=== PATIENT | female | born 1975 | race African-American/Black ===

== ENCOUNTER 2019-10-27 23:38 | Inpatient (IN) ==
[2019-10-28 00:52] LABS: Basophils % 0.3 % (0.0-0.8); Eosinophils # 0.1 10*3/uL (0.0-0.87); Eosinophils % 0.9 % (0.00-10.9); Hematocrit 38.9 VOL% (35.7-47.0); Hemoglobin 11.7 GM/DL (12.0-16.0); Immature Granulocytes % 0.9 %; Lymphocytes # 1.7 10*3/uL (1.4-4.0); Lymphocytes % 14.5 % (21.3-54.2); Mean Corpuscular HGB Conc 30.1 GM/DL (32-36); Mean Corpuscular Volume 85.7 FL (87-102); Mean Platelet Volume 10.7 FL (9.6-12.0); Monocytes % 6.8 % (1.7-12.7); NRBC # 0.03 10*3/uL; Neutrophils % 76.6 % (38.7-73.9); Platelet Count 482 T/CUMM (130-400); Red Blood Count 4.54 MC/CUMM (3.8-5.5); Red Cell Distribution Width 18.9 % (9.3-17.3); White Blood Count 11.7 T/CUMM (4-12)
[2019-10-28 01:03] LABS: PT Patient Result 10.5 SECS (9.8-11.9); Partial Thromboplastin Time 25.1 SECS (23.9-33.8)
[2019-10-28 01:08] LABS: Albumin 2.8 G/DL (3.4-5.0); Bilirubin,Total 0.4 MG/DL (0.2-1.0); Calcium 8.7 MG/DL (8.5-10.1); Ferritin 20.3 ng/ml (8-252); Osmolality,Calculated 269.7 MOS/KG (273-304); Total Protein 8.3 G/DL (6.4-8.3)
[2019-10-28] MEDS ORDERED: GLUCAGON 1 MG VIAL IM PRN (02:05)
[2019-10-28] MEDS ORDERED: DEXTROSE 50% 25 GM/50 ML VIAL IV PRN (02:05)
[2019-10-28] MEDS ORDERED: methylPREDNISolone SOD SUC 125 MG/2 ML VIAL IV ONE (02:07)
[2019-10-28] MEDS ORDERED: AZITHROMYCIN INJ 500 MG in SODIUM CHLORIDE 0.9% 250 ML IV ONE (02:08)
[2019-10-28] MEDS ORDERED: ONDANSETRON 4 MG/2 ML VIAL IV PRN (02:09)
[2019-10-28] MEDS ORDERED: DOCUSATE SODIUM 100 MG CAPSULE PO PRN (02:09)
[2019-10-28 02:12] LABS: Apearance,Urine CLEAR (Clear); Bilirubin,Urine Negative (Negative); Blood, Urine Small mg/dL (Negative); Glucose,Urine (UA) Negative (Negative); Ketones,Urine Negative (Negative); Mucus,Urine Occasional /LPF (Occasional); Nitrite,Urine Negative (Negative); Protein,Urine 100 MG/DL; RBC,Urine 6 /HPF (0-4); Squamous Epithelial Cell,Urine Occasional /HPF (0-10); Urine Color Yellow (Yellow); Urine Specific Gravity 1.019 (1.001-1.035); Urine Urobilinogen < 2.0 EU/DL (0.2-1.0); WBC,Urine 10 /HPF (0-6)
[2019-10-28] MEDS ORDERED: cefTRIAXone 1,000 MG in SODIUM CHLORIDE 0.9% 100 ML IV SCH (02:30)
[2019-10-28 02:42] LABS: Risk Ratio 5.6; Thyroid Stimulating Hormone 3.7 uIU/ml (0.358-3.74); VLDL CHOLESTEROL 29.4 MG/DL
[2019-10-28 04:01] LABS: ABG Base Excess -0.9 MMOL/L (-2.5-2.5); ABG HCO3 23.7 MMOL/L (20-26); ABG Oxygen Saturation 97.6 % (95-100); ABG PCO2 37.7 MM HG (35-48); ABG PH 7.403 (7.35-7.45); Allen Test Positive
[2019-10-28] MEDS ORDERED: ENOXAPARIN 40 MG/0.4 ML SYRINGE SUBCUT SCH (08:00)
[2019-10-28] MEDS: INSULIN LISPRO 100 UNIT/ML SUBCUT SCH ×4 (09:13→20:22)
[2019-10-28] MEDS: ENOXAPARIN 40 MG/0.4 ML SYRINGE SUBCUT SCH ×2 (09:13→20:22)
[2019-10-28] MEDS: PANTOPRAZOLE 40 MG TABLET PO SCH (09:14)
[2019-10-28] MEDS: ASPIRIN CHEW 81 MG TABLET PO SCH (09:14)
[2019-10-28] MEDS: ZINC GLUCONATE 50 MG TABLET PO SCH (09:14)
[2019-10-28] MEDS: ACETAMINOPHEN 325 MG TABLET PO PRN ×2 (09:14→20:23)
[2019-10-28] MEDS: LISINOPRIL/HCTZ 10-12.5 MG TABLET PO SCH (09:15)
[2019-10-28 10:48] LABS: Calcium 8.8 MG/DL (8.5-10.1); Osmolality,Calculated 274.7 MOS/KG (273-304)
[2019-10-28] MEDS: amLODIPine 5 MG TABLET PO SCH (20:22)
[2019-10-28] MEDS: glipiZIDE 5 MG TABLET PO SCH (20:22)
[2019-10-28] MEDS: ASCORBIC ACID 500 MG TABLET PO SCH (20:23)
[2019-10-29 04:33] LABS: Calcium 8.6 MG/DL (8.5-10.1); Osmolality,Calculated 268.7 MOS/KG (273-304)
[2019-10-29] MEDS: INSULIN LISPRO 100 UNIT/ML SUBCUT SCH ×4 (09:32→22:11)
[2019-10-29] MEDS: ENOXAPARIN 40 MG/0.4 ML SYRINGE SUBCUT SCH ×2 (09:32→22:11)
[2019-10-29] MEDS: ASPIRIN CHEW 81 MG TABLET PO SCH (09:32)
[2019-10-29] MEDS: DEXAMETHASONE 10 MG/1 ML VIAL IV SCH (09:33)
[2019-10-29] MEDS: LISINOPRIL/HCTZ 10-12.5 MG TABLET PO SCH (09:33)
[2019-10-29] MEDS: glipiZIDE 5 MG TABLET PO SCH ×2 (09:33→22:11)
[2019-10-29] MEDS: ZINC GLUCONATE 50 MG TABLET PO SCH (09:33)
[2019-10-29] MEDS: PANTOPRAZOLE 40 MG TABLET PO SCH (09:33)
[2019-10-29] MEDS: cefTRIAXone 1,000 MG in SYRINGE 1 EACH IV SCH (09:33)
[2019-10-29] MEDS: ASCORBIC ACID 500 MG TABLET PO SCH ×2 (09:33→22:12)
[2019-10-29] MEDS: AZITHROMYCIN 250 MG TABLET PO SCH (09:33)
[2019-10-29] MEDS ORDERED: VANCOMYCIN INJ 1,000 MG in SODIUM CHLORIDE 0.9% 250 ML IV ONE (12:56)
[2019-10-29] MEDS ORDERED: SODIUM CHLORIDE 0.9% 500 ML IV ONE (13:05)
[2019-10-29] MEDS: ACETAMINOPHEN 325 MG TABLET PO PRN (22:12)
[2019-10-29] MEDS: amLODIPine 5 MG TABLET PO SCH (22:12)
[2019-10-30 05:34] LABS: Basophils % 0.1 % (0.0-0.8); Hematocrit 36.7 VOL% (35.7-47.0); Immature Granulocytes % 0.5 %; Immature Granulocytes Absolute 0.07 #; Lymphocytes # 1.4 10*3/uL (1.4-4.0); Lymphocytes % 10.7 % (21.3-54.2); Mean Corpuscular HGB Conc 29.4 GM/DL (32-36); Mean Corpuscular Volume 85.9 FL (87-102); Mean Platelet Volume 10.6 FL (9.6-12.0); NRBC # 0.02 10*3/uL; Neutrophils % 81.7 % (38.7-73.9); Platelet Count 511 T/CUMM (130-400); Red Blood Count 4.27 MC/CUMM (3.8-5.5); Red Cell Distribution Width 18.2 % (9.3-17.3); White Blood Count 13.2 T/CUMM (4-12)
[2019-10-30 06:01] LABS: Calcium 8.3 MG/DL (8.5-10.1); Osmolality,Calculated 275.2 MOS/KG (273-304)
[2019-10-30 06:36] LABS: Hemoglobin 11.1 GM/DL (12.0-16.0)
[2019-10-30] MEDS: INSULIN LISPRO 100 UNIT/ML SUBCUT SCH ×4 (08:03→20:56)
[2019-10-30] MEDS: ENOXAPARIN 40 MG/0.4 ML SYRINGE SUBCUT SCH ×2 (08:58→20:03)
[2019-10-30] MEDS: ZINC GLUCONATE 50 MG TABLET PO SCH (08:59)
[2019-10-30] MEDS: PANTOPRAZOLE 40 MG TABLET PO SCH (08:59)
[2019-10-30] MEDS: LISINOPRIL/HCTZ 10-12.5 MG TABLET PO SCH (08:59)
[2019-10-30] MEDS: glipiZIDE 5 MG TABLET PO SCH ×2 (08:59→20:36)
[2019-10-30] MEDS: ASPIRIN CHEW 81 MG TABLET PO SCH (08:59)
[2019-10-30] MEDS: DEXAMETHASONE 10 MG/1 ML VIAL IV SCH (08:59)
[2019-10-30] MEDS: cefTRIAXone 1,000 MG in SYRINGE 1 EACH IV SCH (08:59)
[2019-10-30] MEDS: ASCORBIC ACID 500 MG TABLET PO SCH ×2 (08:59→20:36)
[2019-10-30] MEDS: AZITHROMYCIN 250 MG TABLET PO SCH (09:00)
[2019-10-30] MEDS: amLODIPine 5 MG TABLET PO SCH (20:36)
[2019-10-31] MEDS: INSULIN LISPRO 100 UNIT/ML SUBCUT SCH ×4 (08:15→20:51)
[2019-10-31] MEDS: ENOXAPARIN 40 MG/0.4 ML SYRINGE SUBCUT SCH ×2 (08:18→20:53)
[2019-10-31] MEDS: cefTRIAXone 1,000 MG in SYRINGE 1 EACH IV SCH (08:18)
[2019-10-31] MEDS: glipiZIDE 5 MG TABLET PO SCH ×2 (08:18→20:48)
[2019-10-31] MEDS: LISINOPRIL/HCTZ 10-12.5 MG TABLET PO SCH (08:18)
[2019-10-31] MEDS: ASPIRIN CHEW 81 MG TABLET PO SCH (08:18)
[2019-10-31] MEDS: PANTOPRAZOLE 40 MG TABLET PO SCH (08:18)
[2019-10-31] MEDS: DEXAMETHASONE 10 MG/1 ML VIAL IV SCH (08:18)
[2019-10-31] MEDS: ZINC GLUCONATE 50 MG TABLET PO SCH (08:19)
[2019-10-31] MEDS: ASCORBIC ACID 500 MG TABLET PO SCH ×2 (08:19→20:48)
[2019-10-31] MEDS: AZITHROMYCIN 250 MG TABLET PO SCH (08:19)
[2019-10-31] MEDS: amLODIPine 5 MG TABLET PO SCH (20:48)
[2019-11-01] MEDS: INSULIN LISPRO 100 UNIT/ML SUBCUT SCH (07:39)
[2019-11-01 07:43] VITALS: BP 149/86
[2019-11-01] MEDS: glipiZIDE 5 MG TABLET PO SCH (08:24)
[2019-11-01] MEDS: ASCORBIC ACID 500 MG TABLET PO SCH (08:24)
[2019-11-01] MEDS: LISINOPRIL/HCTZ 10-12.5 MG TABLET PO SCH (08:24)
[2019-11-01] MEDS: PANTOPRAZOLE 40 MG TABLET PO SCH (08:24)
[2019-11-01] MEDS: DEXAMETHASONE 10 MG/1 ML VIAL IV SCH (08:25)
[2019-11-01] MEDS: ZINC GLUCONATE 50 MG TABLET PO SCH (08:25)
[2019-11-01] MEDS: ENOXAPARIN 40 MG/0.4 ML SYRINGE SUBCUT SCH (08:25)
[2019-11-01] MEDS: AZITHROMYCIN 250 MG TABLET PO SCH (08:25)
[2019-11-01] MEDS: cefTRIAXone 1,000 MG in SYRINGE 1 EACH IV SCH (08:25)
[2019-11-01] MEDS: ASPIRIN CHEW 81 MG TABLET PO SCH (08:25)
[2019-11-01] MEDS ORDERED: predniSONE 20 MG TABLET PO SCH (09:00)
== END 2019-11-01 13:30 | disposition home or self-care (01) | DRG 189 ==
LOC: N.ED 23:38 → N.EDINP 10-28 02:04 → SUATTDRO 10-28 02:04 → N.ICU 10-28 03:04 → N.CC 10-28 03:10 → N.2E 10-28 14:13 → N.4E 10-30 13:04
PROVIDERS: ADMIT Internal Medicine; ATTEND Internal Medicine

== ENCOUNTER 2020-01-27 17:58 | Observation (INO) ==
[2020-01-27 18:46] LABS: Basophils % 0.3 % (0.0-0.8); Eosinophils # 0.1 10*3/uL (0.0-0.87); Eosinophils % 0.5 % (0.00-10.9); Immature Granulocytes % 0.4 %; Immature Granulocytes Absolute 0.05 #; Lymphocytes % 8.8 % (21.3-54.2); Mean Corpuscular HGB Conc 29.8 GM/DL (32-36); Mean Corpuscular Volume 88.2 FL (87-102); Mean Platelet Volume 10.9 FL (9.6-12.0); Monocytes % 2.1 % (1.7-12.7); Neutrophils % 87.9 % (38.7-73.9); Platelet Count 360 T/CUMM (130-400); Red Blood Count 5.33 MC/CUMM (3.8-5.5); Red Cell Distribution Width 18.7 % (9.3-17.3); White Blood Count 11.6 T/CUMM (4-12)
[2020-01-27 19:08] LABS: INR 0.9; PT Patient Result 10.1 SECS (9.8-11.9)
[2020-01-27 19:12] LABS: Alanine Aminotransferase 23 U/L (13-56); Albumin 3.2 G/DL (3.4-5.0); Alkaline Phosphatase 53 U/L (45-117); Aspartate Amino Transferase 25 U/L (0-37); Bilirubin,Total < 0.39 MG/DL (0.2-1.0); Blood Urea Nitrogen 24 MG/DL (7-18); Calcium 8.7 MG/DL (8.5-10.1); Estimated Glom Filtration Rate 58 ML/MIN; Glucose 269 MG/DL (74-106); Osmolality,Calculated 287.7 MOS/KG (273-304); Total Protein 7.5 G/DL (6.4-8.3)
[2020-01-27 19:51] LABS: ABG Base Excess -0.6 MMOL/L (-2.5-2.5); ABG HCO3 23.8 MMOL/L (20-26); ABG Oxygen Saturation 95.3 % (95-100); ABG PCO2 38.1 MM HG (35-48); ABG PH 7.403 (7.35-7.45); ABG PO2 80.8 MM HG (80-95); ABG TCO2 20.7 MMOL/L (23-27); Allen Test Positive
[2020-01-27] MEDS ORDERED: DEXTROSE 50% 25 GM/50 ML VIAL IV PRN ×2 (21:38)
[2020-01-27] MEDS ORDERED: GLUCAGON 1 MG VIAL IM PRN ×2 (21:38)
[2020-01-27] MEDS ORDERED: ONDANSETRON 4 MG/2 ML VIAL IV PRN (21:38)
[2020-01-27] MEDS ORDERED: DOCUSATE SODIUM 100 MG CAPSULE PO PRN (21:38)
[2020-01-27] MEDS ORDERED: BISACODYL 5 MG TABLET PO PRN (21:38)
[2020-01-27] MEDS ORDERED: AZITHROMYCIN INJ 500 MG in SODIUM CHLORIDE 0.9% 250 ML IV SCH (23:45)
[2020-01-27] MEDS ORDERED: ALBUTEROL 0.63 MG/3 ML NEB RESP TX PRN (23:52)
[2020-01-28] MEDS: INSULIN LISPRO 100 UNIT/ML SUBCUT SCH ×3 (09:47→21:57)
[2020-01-28] MEDS: ASPIRIN CHEW 81 MG TABLET PO SCH (09:59)
[2020-01-28] MEDS: glipiZIDE 5 MG TABLET PO SCH ×2 (09:59→21:52)
[2020-01-28] MEDS: carvediloL 25 MG TABLET PO SCH ×2 (09:59→17:50)
[2020-01-28] MEDS: MULTIVITAMIN (CENTRUM) TABLET PO SCH (09:59)
[2020-01-28] MEDS: ENOXAPARIN 40 MG/0.4 ML SYRINGE SUBCUT SCH (10:00)
[2020-01-28] MEDS: AZITHROMYCIN 250 MG TABLET PO SCH (10:00)
[2020-01-28] MEDS: SODIUM CHLORIDE 0.9% 1,000 ML IV SCH (11:58)
[2020-01-28] MEDS: methylPREDNISolone SOD SUC 40 MG/1 ML VIAL IV SCH ×2 (12:16→19:32)
[2020-01-28] MEDS ORDERED: ATORVASTATIN 10 MG TABLET PO SCH (21:00)
[2020-01-29] MEDS: SODIUM CHLORIDE 0.9% 1,000 ML IV SCH (01:18)
[2020-01-29] MEDS: methylPREDNISolone SOD SUC 40 MG/1 ML VIAL IV SCH ×2 (03:43→11:35)
[2020-01-29 06:17] LABS: Basophils % 0.1 % (0.0-0.8); Hematocrit 40.3 VOL% (35.7-47.0); Hemoglobin 12.2 GM/DL (12.0-16.0); Immature Granulocytes % 0.5 %; Immature Granulocytes Absolute 0.05 #; Mean Corpuscular HGB Conc 30.3 GM/DL (32-36); Mean Corpuscular Volume 89.4 FL (87-102); Mean Platelet Volume 12.1 FL (9.6-12.0); Monocytes % 1.8 % (1.7-12.7); Neutrophils % 86.6 % (38.7-73.9); Platelet Count 274 T/CUMM (130-400); Red Blood Count 4.51 MC/CUMM (3.8-5.5); Red Cell Distribution Width 17.9 % (9.3-17.3); White Blood Count 9.5 T/CUMM (4-12)
[2020-01-29 06:35] LABS: Calcium 8.7 MG/DL (8.5-10.1); Osmolality,Calculated 279.2 MOS/KG (273-304)
[2020-01-29 06:40] LABS: Hypochromasia Slight; Ovalocytes Slight; Platelet Estimate Adequate
[2020-01-29] MEDS: glipiZIDE 5 MG TABLET PO SCH (09:27)
[2020-01-29] MEDS: ASPIRIN CHEW 81 MG TABLET PO SCH (09:27)
[2020-01-29] MEDS: MULTIVITAMIN (CENTRUM) TABLET PO SCH (09:27)
[2020-01-29] MEDS: carvediloL 25 MG TABLET PO SCH (09:27)
[2020-01-29] MEDS: AZITHROMYCIN 250 MG TABLET PO SCH (09:28)
[2020-01-29] MEDS: ENOXAPARIN 40 MG/0.4 ML SYRINGE SUBCUT SCH (09:28)
[2020-01-29] MEDS: INSULIN LISPRO 100 UNIT/ML SUBCUT SCH (11:36)
[2020-01-29 12:37] VITALS: BP 171/95
== END 2020-01-29 14:00 | disposition home or self-care (01) ==
LOC: N.ED 17:58 → N.EDINP 17:58 → N.3E 22:29
PROVIDERS: ADMIT Emergency Medicine; ATTEND Emergency Medicine

== ENCOUNTER 2020-04-11 07:18 | Inpatient (IN) ==
[2020-03-29 16:05] LABS: Calcium 9.4 MG/DL (8.5-10.1); Osmolality,Calculated 277.2 MOS/KG (273-304); Potassium 5.5 MMOL/L (3.5-5.1)
[2020-03-29 16:11] LABS: Basophils % 0.3 % (0.0-0.8); Hematocrit 45.7 VOL% (35.7-47.0); INR 0.9; Immature Granulocytes % 2.6 %; Immature Granulocytes Absolute 0.34 #; Lymphocytes # 1.8 10*3/uL (1.4-4.0); Lymphocytes % 13.5 % (21.3-54.2); Mean Corpuscular Volume 93.3 FL (87-102); Mean Platelet Volume 12.6 FL (9.6-12.0); Monocytes % 2.4 % (1.7-12.7); Neutrophils % 81.2 % (38.7-73.9); PT Patient Result 9.9 SECS (9.8-11.9); Platelet Count 395 T/CUMM (130-400); Red Cell Distribution Width 18.6 % (9.3-17.3); White Blood Count 13.1 T/CUMM (4-12)
[2020-03-29 16:17] LABS: Hemoglobin 13.7 GM/DL (12.0-16.0)
[~2020-04-11 07:18] MED LIST: ceFAZolin 2,000 MG in PREMIX 1 EACH IV ONE
[2020-04-11 08:12] LABS: Calcium 9.5 MG/DL (8.5-10.1); Osmolality,Calculated 274.8 MOS/KG (273-304); Potassium 3.7 MMOL/L (3.5-5.1)
[2020-04-11] MEDS ORDERED: LACTATED RINGERS 1,000 ML IV SCH (08:30)
[2020-04-11] MEDS ORDERED: DEXTROSE 50% 25 GM/50 ML VIAL IV STA (08:45)
[2020-04-11] MEDS ORDERED: MIDAZOLAM 2 MG/2 ML VIAL ONE (09:50)
[2020-04-11] MEDS ORDERED: ROCURONIUM 50 MG/5 ML VIAL IV ONE ×2 (09:50→11:29)
[2020-04-11] MEDS ORDERED: LIDOCAINE 2% 5 ML VIAL ONE (09:50)
[2020-04-11] MEDS ORDERED: propofoL 200 MG/20 ML VIAL IV ONE ×2 (09:50→11:29)
[2020-04-11] MEDS ORDERED: fentaNYL 100 MCG/2 ML VIAL ONE ×2 (09:51→11:24)
[2020-04-11] MEDS ORDERED: ROPIVACAINE 0.5% 30 ML VIAL ONE (09:54)
[2020-04-11] MEDS ORDERED: DEXAMETHASONE 4 MG/1 ML VIAL ONE (09:54)
[2020-04-11] MEDS ORDERED: DEXTROSE 5% LACTATED RINGERS 1,000 ML IV SCH (10:30)
[2020-04-11] MEDS ORDERED: HEPARIN/NACL 0.9% 2 UNITS/ML 500 ML IV ONE (10:44)
[2020-04-11] MEDS ORDERED: ALBUTEROL INHALER 18 GM INH ONE (11:16)
[2020-04-11] MEDS ORDERED: methylPREDNISolone SOD SUC 125 MG/2 ML VIAL ONE (11:17)
[2020-04-11] MEDS ORDERED: SEVOFLURANE 1 UNIT/15 MINUTE INH ONE ×2 (11:32→12:28)
[2020-04-11] MEDS ORDERED: PHENYLEPHRINE 1 MG/10 ML SYRINGE IV ONE (11:37)
[2020-04-11] MEDS ORDERED: ACETAMINOPHEN 1,000 MG/100 ML VIAL IV ONE (11:57)
[2020-04-11] MEDS ORDERED: ONDANSETRON 4 MG/2 ML VIAL ONE (11:58)
[2020-04-11] MEDS ORDERED: HYDROmorphone 2 MG/1 ML VIAL ONE (11:58)
[2020-04-11] MEDS ORDERED: LACTATED RINGERS 1,000 ML IV ONE (11:58)
[2020-04-11] MEDS ORDERED: SUGAMMADEX 200 MG/2 ML VIAL IV ONE ×2 (12:00→12:04)
[2020-04-11] MEDS ORDERED: TISSUE ADHESIVE 1 EACH APPLICATOR TOP ONE (12:09)
[2020-04-11] MEDS ORDERED: GLUCAGON 1 MG VIAL IM PRN (12:12)
[2020-04-11] MEDS ORDERED: ONDANSETRON 4 MG/2 ML VIAL IV PRN ×2 (12:12→12:49)
[2020-04-11] MEDS ORDERED: KETOROLAC 15 MG/1 ML VIAL IV PRN (12:12)
[2020-04-11] MEDS ORDERED: HYDROmorphone 2 MG/1 ML VIAL IV PRN ×2 (12:12→12:49)
[2020-04-11] MEDS ORDERED: DEXTROSE 50% 25 GM/50 ML VIAL IV PRN (12:12)
[2020-04-11] MEDS: LACTATED RINGERS 1,000 ML IV SCH (12:30)
[2020-04-11] MEDS ORDERED: diphenhydrAMINE 50 MG/1 ML VIAL IV PRN (12:49)
[2020-04-11] MEDS ORDERED: PROMETHAZINE INJ 25 MG in SODIUM CHLORIDE 0.9% 50 ML IV PRN (12:49)
[2020-04-11] MEDS ORDERED: MEPERIDINE 25 MG/1 ML VIAL IV PRN (12:49)
[2020-04-11 13:38] VITALS: BP 158/90
[2020-04-11] MEDS: hydrALAZINE 25 MG TABLET PO PRN (17:30)
[2020-04-11] MEDS: INSULIN REGULAR 100 UNIT/ML SUBCUT SCH ×2 (17:30→21:20)
[2020-04-11] MEDS ORDERED: MYCOPHENOLATE MOFETIL 500 MG PO SCH (21:00)
[2020-04-11] MEDS: glipiZIDE 5 MG TABLET PO SCH (21:19)
[2020-04-12 04:20] LABS: Basophils % 0.1 % (0.0-0.8); Hematocrit 41.4 VOL% (35.7-47.0); Hemoglobin 12.6 GM/DL (12.0-16.0); Immature Granulocytes % 0.9 %; Immature Granulocytes Absolute 0.13 #; Lymphocytes # 1.2 10*3/uL (1.4-4.0); Lymphocytes % 8.4 % (21.3-54.2); Mean Corpuscular HGB Conc 30.4 GM/DL (32-36); Mean Corpuscular Volume 93.9 FL (87-102); Mean Platelet Volume 11.8 FL (9.6-12.0); Monocytes % 3.7 % (1.7-12.7); Neutrophils % 86.9 % (38.7-73.9); Platelet Count 223 T/CUMM (130-400); Red Blood Count 4.41 MC/CUMM (3.8-5.5); Red Cell Distribution Width 18.8 % (9.3-17.3); White Blood Count 14.4 T/CUMM (4-12)
[2020-04-12 04:39] LABS: Calcium 8.9 MG/DL (8.5-10.1); Osmolality,Calculated 278.2 MOS/KG (273-304); Potassium 5.5 MMOL/L (3.5-5.1)
[2020-04-12] MEDS: LACTATED RINGERS 1,000 ML IV SCH (05:15)
[2020-04-12] MEDS: ENOXAPARIN 40 MG/0.4 ML SYRINGE SUBCUT SCH (06:08)
[2020-04-12] MEDS: ASPIRIN CHEW 81 MG TABLET PO SCH (08:27)
[2020-04-12] MEDS: LISINOPRIL/HCTZ 10-12.5 MG TABLET PO SCH (08:27)
[2020-04-12] MEDS: ATORVASTATIN 10 MG TABLET PO SCH (08:27)
[2020-04-12] MEDS: atenoloL 50 MG TABLET PO SCH (08:28)
[2020-04-12] MEDS: glipiZIDE 5 MG TABLET PO SCH ×2 (08:28→21:09)
[2020-04-12] MEDS: MULTIVITAMIN (CENTRUM) TABLET PO SCH (08:28)
[2020-04-12] MEDS: predniSONE 20 MG TABLET PO SCH (08:28)
[2020-04-12] MEDS: INSULIN REGULAR 100 UNIT/ML SUBCUT SCH ×4 (08:29→21:09)
[2020-04-12] MEDS ORDERED: NON-FORMULARY MEDICATION (Liraglutide [Victoza 2-Pak] 0.6 mg/0.1 mL (18 mg/3 mL) Pen Injec SUBCUT SCH (09:00)
[2020-04-12] MEDS ORDERED: ETHINYL ESTRADIOL/NORGESTREL 0.03-0.3 MG TABLET PO SCH (09:00)
[2020-04-12] MEDS: hydrALAZINE 25 MG TABLET PO PRN (10:50)
[2020-04-12] MEDS ORDERED: OXYGEN SCH (17:24)
[2020-04-13] MEDS: ENOXAPARIN 40 MG/0.4 ML SYRINGE SUBCUT SCH (06:27)
[2020-04-13] MEDS: INSULIN REGULAR 100 UNIT/ML SUBCUT SCH (08:14)
[2020-04-13] MEDS: ASPIRIN CHEW 81 MG TABLET PO SCH (08:33)
[2020-04-13] MEDS: atenoloL 50 MG TABLET PO SCH (08:33)
[2020-04-13] MEDS: MULTIVITAMIN (CENTRUM) TABLET PO SCH (08:33)
[2020-04-13] MEDS: LISINOPRIL/HCTZ 10-12.5 MG TABLET PO SCH (08:33)
[2020-04-13] MEDS: ATORVASTATIN 10 MG TABLET PO SCH (08:33)
[2020-04-13] MEDS: glipiZIDE 5 MG TABLET PO SCH (08:33)
[2020-04-13] MEDS: predniSONE 20 MG TABLET PO SCH (08:33)
[2020-04-13] MEDS ORDERED: SULFAMETHOX/TRIMETHOPRIM 800-160 MG TABLET PO SCH (09:00)
== END 2020-04-13 09:35 | disposition home or self-care (01) | DRG 167 ==
LOC: N.OR 07:18 → N.SDSINP 07:21 → N.CC 13:22
PROVIDERS: ADMIT Surgery; ATTEND Surgery

== ENCOUNTER 2021-02-19 18:15 | Inpatient (IN) ==
[2021-02-19] MEDS ORDERED: DEXTROSE 50% 25 GM/50 ML SYRINGE IV ONE ×2 (18:30→20:07)
[2021-02-19] MEDS ORDERED: DEXTROSE 50% 25 GM/50 ML VIAL IV STA ×2 (18:32→20:11)
[2021-02-19] MEDS ORDERED: ONDANSETRON 4 MG/2 ML VIAL IV STA (18:45)
[2021-02-19] MEDS ORDERED: hydrALAZINE 20 MG/1 ML VIAL IV STA ×2 (18:45→22:35)
[2021-02-19 19:56] LABS: Basophils % 0.1 % (0.0-0.8); Hematocrit 34.8 VOL% (35.7-47.0); Hemoglobin 9.5 GM/DL (12.0-16.0); Immature Granulocytes % 0.3 %; Immature Granulocytes Absolute 0.02 #; Lymphocytes # 0.7 10*3/uL (1.4-4.0); Lymphocytes % 9.5 % (21.3-54.2); Mean Corpuscular HGB Conc 27.3 GM/DL (32-36); Mean Corpuscular Volume 103.6 FL (87-102); Mean Platelet Volume 10.6 FL (9.6-12.0); Monocytes % 1.8 % (1.7-12.7); Neutrophils % 88.3 % (38.7-73.9); Platelet Count 363 T/CUMM (130-400); Red Blood Count 3.36 MC/CUMM (3.8-5.5); Red Cell Distribution Width 22.3 % (9.3-17.3); White Blood Count 7.1 T/CUMM (4-12)
[2021-02-19 20:04] LABS: Alanine Aminotransferase 32 U/L (13-56); Albumin 1.9 G/DL (3.4-5.0); Alkaline Phosphatase 51 U/L (45-117); Aspartate Amino Transferase 41 U/L (0-37); Bilirubin,Total < 0.39 MG/DL (0.20-1.00); Blood Urea Nitrogen 62 MG/DL (7-18); Calcium 8.2 MG/DL (8.5-10.1); Carbon Dioxide 24 MMOL/L (21-32); Estimated Glom Filtration Rate 16 ML/MIN; Glucose 58 MG/DL (74-106); Osmolality,Calculated 294.4 MOS/KG (273-304); Potassium 4.2 MMOL/L (3.5-5.1); Sodium 140 MMOL/L (136-145); Total Protein 6.3 G/DL (6.4-8.2)
[2021-02-19] MEDS ORDERED: SODIUM CHLORIDE 0.9% 1,000 ML IV STA (20:12)
[2021-02-19] MEDS: DEXTROSE 10% 1,000 ML IV SCH (20:35)
[2021-02-19] MEDS ORDERED: GLUCAGON 1 MG VIAL IM PRN (20:50)
[2021-02-19] MEDS ORDERED: ONDANSETRON 4 MG/2 ML VIAL IV PRN (20:50)
[2021-02-19] MEDS ORDERED: hydrALAZINE 10 MG TABLET PO SCH (21:00)
[2021-02-19] MEDS: DEXTROSE 50% 25 GM/50 ML SYRINGE IV PRN (21:32)
[2021-02-19] MEDS ORDERED: LABETALOL 20 MG/4 ML SYRINGE IV STA (22:04)
[2021-02-19] MEDS: HEPARIN 5,000 UNIT/1 ML VIAL SUBCUT SCH (22:12)
[2021-02-19] MEDS: DEXTROSE 5% NACL 0.9% 1,000 ML IV SCH (22:12)
[2021-02-20] MEDS: DEXTROSE 50% 25 GM/50 ML SYRINGE IV PRN ×2 (00:29→02:54)
[2021-02-20] MEDS ORDERED: HYDROCORTISONE 100 MG VIAL IV ONE (03:00)
[2021-02-20 03:57] LABS: Calcium 7.5 MG/DL (8.5-10.1); Osmolality,Calculated 301.1 MOS/KG (273-304); Potassium 4.1 MMOL/L (3.5-5.1)
[2021-02-20 07:25] LABS: Basophils % 0.1 % (0.0-0.8); Eosinophils % 0.1 % (0.00-10.9); Immature Granulocytes % 0.4 %; Immature Granulocytes Absolute 0.04 #; Lymphocytes # 1.5 10*3/uL (1.4-4.0); Lymphocytes % 14.8 % (21.3-54.2); Mean Corpuscular HGB Conc 27.9 GM/DL (32-36); Mean Corpuscular Volume 104.3 FL (87-102); Mean Platelet Volume 11.1 FL (9.6-12.0); Monocytes % 4.7 % (1.7-12.7); Neutrophils % 79.9 % (38.7-73.9); Platelet Count 364 T/CUMM (130-400); Red Blood Count 3.26 MC/CUMM (3.8-5.5); White Blood Count 9.9 T/CUMM (4-12)
[2021-02-20 07:28] LABS: Hemoglobin 9.5 GM/DL (12.0-16.0)
[2021-02-20] MEDS: INSULIN REGULAR 100 UNIT/ML SUBCUT SCH ×2 (07:30→16:56)
[2021-02-20] MEDS: ATORVASTATIN 10 MG TABLET PO SCH (08:55)
[2021-02-20] MEDS: ASPIRIN CHEW 81 MG TABLET PO SCH (08:55)
[2021-02-20] MEDS: atenoloL 50 MG TABLET PO SCH (08:55)
[2021-02-20] MEDS: PANTOPRAZOLE 40 MG TABLET PO SCH (08:55)
[2021-02-20] MEDS: HEPARIN 5,000 UNIT/1 ML VIAL SUBCUT SCH ×3 (08:57→21:31)
[2021-02-20] MEDS ORDERED: METOPROLOL TARTRATE 50 MG TABLET PO SCH (09:00)
[2021-02-20] MEDS: DEXTROSE 5% NACL 0.9% 1,000 ML IV SCH (12:38)
[2021-02-21] MEDS: HEPARIN 5,000 UNIT/1 ML VIAL SUBCUT SCH ×3 (05:51→22:43)
[2021-02-21 06:14] LABS: Calcium 7.7 MG/DL (8.5-10.1); Osmolality,Calculated 292.7 MOS/KG (273-304); Potassium 4.6 MMOL/L (3.5-5.1)
[2021-02-21 06:37] LABS: Basophils % 0.1 % (0.0-0.8); Eosinophils # 0.2 10*3/uL (0.0-0.87); Eosinophils % 1.7 % (0.00-10.9); Hematocrit 29.2 VOL% (35.7-47.0); Hemoglobin 8.2 GM/DL (12.0-16.0); Immature Granulocytes % 0.4 %; Immature Granulocytes Absolute 0.06 #; Lymphocytes # 2.5 10*3/uL (1.4-4.0); Lymphocytes % 18.1 % (21.3-54.2); Mean Corpuscular HGB Conc 28.1 GM/DL (32-36); Mean Corpuscular Volume 100.7 FL (87-102); Mean Platelet Volume 11.2 FL (9.6-12.0); Monocytes % 5.3 % (1.7-12.7); NRBC # 0.02 10*3/uL; Neutrophils % 74.4 % (38.7-73.9); Platelet Count 393 T/CUMM (130-400); Red Cell Distribution Width 21.8 % (9.3-17.3); White Blood Count 13.6 T/CUMM (4-12)
[2021-02-21] MEDS: ASPIRIN CHEW 81 MG TABLET PO SCH (08:36)
[2021-02-21] MEDS: atenoloL 50 MG TABLET PO SCH (08:37)
[2021-02-21] MEDS: ATORVASTATIN 10 MG TABLET PO SCH (08:37)
[2021-02-21] MEDS: PANTOPRAZOLE 40 MG TABLET PO SCH (08:37)
[2021-02-21] MEDS: INSULIN REGULAR 100 UNIT/ML SUBCUT SCH ×2 (08:38→16:26)
[2021-02-21] MEDS: DEXTROSE 5% NACL 0.9% 1,000 ML IV SCH ×4 (08:50→18:17)
[2021-02-21] MEDS: ACETAMINOPHEN 325 MG TABLET PO PRN (08:50)
[2021-02-21] MEDS ORDERED: MULTIVIT WITH MIN FOLIC ACID PO SCH (09:00)
[2021-02-21] MEDS: MULTIVITAMIN (CENTRUM) TABLET PO SCH (09:47)
[2021-02-21 17:11] LABS: Cyclic Citrull Peptide Interp Positive
[2021-02-21] MEDS: MYCOPHENOLATE MOFETIL 250 MG CAPSULE PO SCH (22:43)
[2021-02-21] MEDS: NINTEDANIB 150 MG PO SCH (22:44)
[2021-02-21] MEDS: DEXTROSE 10% 1,000 ML IV SCH (23:31)
[2021-02-22] MEDS: DEXTROSE 5% NACL 0.9% 1,000 ML IV SCH ×2 (02:17→10:45)
[2021-02-22] MEDS: HEPARIN 5,000 UNIT/1 ML VIAL SUBCUT SCH ×3 (04:21→22:15)
[2021-02-22 04:29] LABS: ABG HCO3 20.2 MMOL/L (20-26); ABG Oxygen Saturation 93.8 % (95-100); ABG PCO2 43.6 MM HG (35-48); ABG PH 7.295 (7.35-7.45); ABG PO2 77.3 MM HG (80-95)
[2021-02-22 06:06] LABS: Calcium 7.8 MG/DL (8.5-10.1); Osmolality,Calculated 287.2 MOS/KG (273-304); Potassium 4.5 MMOL/L (3.5-5.1)
[2021-02-22 06:15] LABS: INR 0.9; PT Patient Result 10.3 SECS (10.5-12.0)
[2021-02-22 06:23] LABS: Basophils % 0.2 % (0.0-0.8); Eosinophils # 0.4 10*3/uL (0.0-0.87); Eosinophils % 3.1 % (0.00-10.9); Hemoglobin 7.9 GM/DL (12.0-16.0); Immature Granulocytes % 0.3 %; Immature Granulocytes Absolute 0.04 #; Lymphocytes # 2.1 10*3/uL (1.4-4.0); Mean Corpuscular HGB Conc 29.3 GM/DL (32-36); Mean Platelet Volume 11.2 FL (9.6-12.0); Monocytes % 5.8 % (1.7-12.7); Neutrophils % 72.6 % (38.7-73.9); Platelet Count 372 T/CUMM (130-400); Red Cell Distribution Width 21.6 % (9.3-17.3); White Blood Count 11.8 T/CUMM (4-12)
[2021-02-22 06:45] LABS: Hypochromia 1+; Ovalocytes Slight
[2021-02-22 06:46] LABS: Anisocytosis 1+; Macrocytosis 1+; Platelet Estimate Normal
[2021-02-22 07:27] LABS: Total Protein (Chem) 5.3 G/DL (6.4-8.3)
[2021-02-22 09:21] LABS: Albumin (SPE) 2.3 G/DL (3.2-5.3); Albumin (SPE) Rel % 43.4 %; Alpha 1 (SPE) 0.3 G/DL (0.1-0.4); Alpha 1 (SPE) Rel % 5.2 %; Alpha 2 (SPE) 1.1 G/DL (0.4-1.0); Alpha 2 (SPE) Rel % 20.1 %; Beta (SPE) 0.6 G/DL (0.5-1.1); Beta (SPE) Rel % 11.3 %; Gamma (SPE) 1.1 G/DL (0.7-1.7)
[2021-02-22] MEDS: ASPIRIN CHEW 81 MG TABLET PO SCH (10:43)
[2021-02-22] MEDS: MULTIVITAMIN (CENTRUM) TABLET PO SCH (10:43)
[2021-02-22] MEDS: ATORVASTATIN 10 MG TABLET PO SCH (10:43)
[2021-02-22] MEDS: PANTOPRAZOLE 40 MG TABLET PO SCH (10:44)
[2021-02-22] MEDS: atenoloL 50 MG TABLET PO SCH (10:45)
[2021-02-22] MEDS: NINTEDANIB 150 MG PO SCH ×2 (12:02→22:11)
[2021-02-22] MEDS: MYCOPHENOLATE MOFETIL 250 MG CAPSULE PO SCH ×2 (12:03→22:10)
[2021-02-22] MEDS: INSULIN REGULAR 100 UNIT/ML SUBCUT SCH ×2 (13:22→18:05)
[2021-02-22] MEDS: predniSONE 5 MG TABLET PO SCH (22:10)
[2021-02-22] MEDS: LOPERAMIDE 2 MG CAPSULE PO PRN (22:14)
[2021-02-23] MEDS: HEPARIN 5,000 UNIT/1 ML VIAL SUBCUT SCH ×3 (05:21→22:15)
[2021-02-23 09:28] LABS: Calcium 7.7 MG/DL (8.5-10.1); Osmolality,Calculated 286.4 MOS/KG (273-304); Potassium 4.9 MMOL/L (3.5-5.1)
[2021-02-23 09:41] LABS: Basophils % 0.2 % (0.0-0.8); Eosinophils # 0.1 10*3/uL (0.0-0.87); Hematocrit 28.1 VOL% (35.7-47.0); Immature Granulocytes % 0.4 %; Immature Granulocytes Absolute 0.04 #; Lymphocytes # 1.6 10*3/uL (1.4-4.0); Lymphocytes % 15.6 % (21.3-54.2); Mean Corpuscular HGB Conc 28.5 GM/DL (32-36); Mean Corpuscular Volume 99.3 FL (87-102); Mean Platelet Volume 10.8 FL (9.6-12.0); Monocytes % 5.6 % (1.7-12.7); Neutrophils % 77.2 % (38.7-73.9); Platelet Count 410 T/CUMM (130-400); Red Blood Count 2.83 MC/CUMM (3.8-5.5); Red Cell Distribution Width 21.2 % (9.3-17.3); White Blood Count 10.3 T/CUMM (4-12)
[2021-02-23] MEDS: INSULIN REGULAR 100 UNIT/ML SUBCUT SCH ×2 (09:47→17:56)
[2021-02-23] MEDS: predniSONE 5 MG TABLET PO SCH ×2 (09:48→22:11)
[2021-02-23] MEDS: MYCOPHENOLATE MOFETIL 250 MG CAPSULE PO SCH ×2 (09:48→22:11)
[2021-02-23] MEDS: MULTIVITAMIN (CENTRUM) TABLET PO SCH (09:48)
[2021-02-23] MEDS: ASPIRIN CHEW 81 MG TABLET PO SCH (09:48)
[2021-02-23] MEDS: atenoloL 50 MG TABLET PO SCH (09:49)
[2021-02-23] MEDS: NINTEDANIB 150 MG PO SCH ×2 (09:51→22:12)
[2021-02-23] MEDS: PANTOPRAZOLE 40 MG TABLET PO SCH (09:56)
[2021-02-23] MEDS: ATORVASTATIN 10 MG TABLET PO SCH (09:56)
[2021-02-23] MEDS: LOPERAMIDE 2 MG CAPSULE PO PRN (10:00)
[2021-02-23 15:56] LABS: Myeloperoxidase Antibody < 0.2 U
[2021-02-23 18:59] LABS: Barbiturates Screen,Urine Negative (Negative); Benzodiazepines Screen,Urine Negative (Negative); Cannabinoid Screen,Urine Negative (Negative); Opiate Screen,Urine Negative (Negative); Phencyclidine Screen,Urine Negative (Negative)
[2021-02-23 19:59] LABS: Bilirubin,Urine Negative (Negative); Blood, Urine Large mg/dL (Negative); Glucose,Urine (UA) Negative (Negative); Hyaline Casts,Urine 9 /LPF (0-3); Ketones,Urine Negative (Negative); Mucus,Urine Occasional /LPF (Occasional); Nitrite,Urine Negative (Negative); Protein,Urine >=500 MG/DL; RBC,Urine 11 /HPF (0-4); Squamous Epithelial Cell,Urine Occasional /HPF (0-10); Urine Appearance CLOUDY (Clear); Urine Color Amber (Yellow); Urine Specific Gravity 1.017 (1.001-1.035); Urine Urobilinogen < 2.0 EU/DL (<2.0)
[2021-02-24] MEDS: HEPARIN 5,000 UNIT/1 ML VIAL SUBCUT SCH ×3 (05:20→22:47)
[2021-02-24] MEDS: INSULIN REGULAR 100 UNIT/ML SUBCUT SCH ×2 (08:46→15:51)
[2021-02-24] MEDS: ATORVASTATIN 10 MG TABLET PO SCH (11:07)
[2021-02-24] MEDS: MYCOPHENOLATE MOFETIL 250 MG CAPSULE PO SCH ×2 (11:07→22:45)
[2021-02-24] MEDS: ASPIRIN CHEW 81 MG TABLET PO SCH (11:07)
[2021-02-24] MEDS: MULTIVITAMIN (CENTRUM) TABLET PO SCH (11:07)
[2021-02-24] MEDS: predniSONE 5 MG TABLET PO SCH ×2 (11:08→22:45)
[2021-02-24] MEDS: PANTOPRAZOLE 40 MG TABLET PO SCH (11:08)
[2021-02-24] MEDS: CHOLESTYRAMINE 4 GM PACK PO SCH (11:08)
[2021-02-24] MEDS: atenoloL 50 MG TABLET PO SCH (11:08)
[2021-02-24] MEDS: NINTEDANIB 150 MG PO SCH ×2 (11:08→22:46)
[2021-02-24] MEDS: SODIUM CHLORIDE 0.9% 1,000 ML IV SCH ×2 (15:46→22:30)
[2021-02-25] MEDS: INSULIN REGULAR 100 UNIT/ML SUBCUT SCH ×3 (08:28→20:49)
[2021-02-25 09:16] LABS: Calcium 7.6 MG/DL (8.5-10.1); Osmolality,Calculated 290.4 MOS/KG (273-304); Potassium 5.6 MMOL/L (3.5-5.1)
[2021-02-25] MEDS: SODIUM CHLORIDE 0.9% 1,000 ML IV SCH (09:43)
[2021-02-25] MEDS: MYCOPHENOLATE MOFETIL 250 MG CAPSULE PO SCH ×2 (09:44→20:47)
[2021-02-25] MEDS: MULTIVITAMIN (CENTRUM) TABLET PO SCH (09:44)
[2021-02-25] MEDS: atenoloL 50 MG TABLET PO SCH (09:44)
[2021-02-25] MEDS: ASPIRIN CHEW 81 MG TABLET PO SCH (09:44)
[2021-02-25] MEDS: CHOLESTYRAMINE 4 GM PACK PO SCH (09:45)
[2021-02-25] MEDS: ATORVASTATIN 10 MG TABLET PO SCH (09:45)
[2021-02-25] MEDS: PANTOPRAZOLE 40 MG TABLET PO SCH (09:45)
[2021-02-25] MEDS: NINTEDANIB 150 MG PO SCH ×2 (09:51→20:49)
[2021-02-25] MEDS: predniSONE 5 MG TABLET PO SCH ×2 (09:57→20:48)
[2021-02-25] MEDS ORDERED: DIAZEPAM 5 MG TABLET PO ONE (10:16)
[2021-02-25 11:41] LABS: Antinuclear Ab, S 9.3 U
[2021-02-25] MEDS ORDERED: LIDOCAINE 1%/EPI INJ 20 ML VIAL ONE (12:00)
[2021-02-25] MEDS ORDERED: ONDANSETRON 4 MG TABLET PO PRN (12:48)
[2021-02-25 13:47] LABS: Basophils % 0.1 % (0.0-0.8); Eosinophils # 0.1 10*3/uL (0.0-0.87); Eosinophils % 0.5 % (0.00-10.9); Hematocrit 29.4 VOL% (35.7-47.0); Hemoglobin 8.5 GM/DL (12.0-16.0); Immature Granulocytes % 0.3 %; Immature Granulocytes Absolute 0.03 #; Lymphocytes # 1.2 10*3/uL (1.4-4.0); Lymphocytes % 12.4 % (21.3-54.2); Mean Corpuscular HGB Conc 28.9 GM/DL (32-36); Mean Corpuscular Volume 99.3 FL (87-102); Mean Platelet Volume 10.8 FL (9.6-12.0); NRBC # 0.02 10*3/uL; Neutrophils % 81.7 % (38.7-73.9); Platelet Count 537 T/CUMM (130-400); Red Blood Count 2.96 MC/CUMM (3.8-5.5); Red Cell Distribution Width 21.2 % (9.3-17.3); White Blood Count 9.5 T/CUMM (4-12)
[2021-02-25] MEDS ORDERED: INSULIN REGULAR 10 UNIT, CALCIUM GLUCONATE 1,000 MG in DEXTROSE 10% 250 ML IV ONE (14:00)
[2021-02-25] MEDS ORDERED: SODIUM POLYSTYRENE SULFATE 15 GM/60 ML BOTTLE PO ONE (14:00)
[2021-02-25] MEDS: SODIUM BICARB INJ 50 MEQ in DEXTROSE 5% NACL 0.22% 1,000 ML IV SCH (15:22)
[2021-02-25 16:00] LABS: Osmolality,Calculated 290.4 MOS/KG (273-304); Potassium 5.9 MMOL/L (3.5-5.1)
[2021-02-25] MEDS: LOPERAMIDE 2 MG CAPSULE PO PRN (20:47)
[2021-02-25] MEDS: HYDROXYCHLOROQUINE 200 MG TABLET PO SCH (20:48)
[2021-02-26] MEDS: SODIUM BICARB INJ 50 MEQ in DEXTROSE 5% NACL 0.22% 1,000 ML IV SCH (01:05)
[2021-02-26 05:44] LABS: Basophils % 0.1 % (0.0-0.8); Eosinophils # 0.1 10*3/uL (0.0-0.87); Eosinophils % 0.8 % (0.00-10.9); Hematocrit 29.4 VOL% (35.7-47.0); Hemoglobin 8.5 GM/DL (12.0-16.0); Immature Granulocytes % 0.3 %; Immature Granulocytes Absolute 0.03 #; Lymphocytes # 1.2 10*3/uL (1.4-4.0); Mean Corpuscular HGB Conc 28.9 GM/DL (32-36); Mean Corpuscular Volume 100.3 FL (87-102); Mean Platelet Volume 10.3 FL (9.6-12.0); Monocytes % 5.4 % (1.7-12.7); NRBC # 0.02 10*3/uL; Neutrophils % 82.4 % (38.7-73.9); Platelet Count 554 T/CUMM (130-400); Red Blood Count 2.93 MC/CUMM (3.8-5.5); Red Cell Distribution Width 21.3 % (9.3-17.3); White Blood Count 10.6 T/CUMM (4-12)
[2021-02-26 06:14] LABS: Hypochromia Slight; Platelet Estimate Increased
[2021-02-26 06:27] LABS: Alanine Aminotransferase 25 U/L (13-56); Albumin 1.6 G/DL (3.4-5.0); Alkaline Phosphatase 93 U/L (45-117); Aspartate Amino Transferase 48 U/L (0-37); Bilirubin,Total < 0.39 MG/DL (0.20-1.00); Blood Urea Nitrogen 84 MG/DL (7-18); Calcium 8.1 MG/DL (8.5-10.1); Carbon Dioxide 16 MMOL/L (21-32); Estimated Glom Filtration Rate 10 ML/MIN; Glucose 143 MG/DL (74-106); Osmolality,Calculated 289.7 MOS/KG (273-304); Potassium 5.3 MMOL/L (3.5-5.1); Sodium 131 MMOL/L (136-145); Total Protein 6.2 G/DL (6.4-8.2)
[2021-02-26] MEDS: INSULIN REGULAR 100 UNIT/ML SUBCUT SCH ×4 (08:38→22:01)
[2021-02-26] MEDS: predniSONE 5 MG TABLET PO SCH ×2 (08:39→22:00)
[2021-02-26] MEDS: atenoloL 50 MG TABLET PO SCH (08:39)
[2021-02-26] MEDS: ATORVASTATIN 10 MG TABLET PO SCH (08:39)
[2021-02-26] MEDS: PANTOPRAZOLE 40 MG TABLET PO SCH (08:39)
[2021-02-26] MEDS: MYCOPHENOLATE MOFETIL 250 MG CAPSULE PO SCH ×2 (08:39→22:00)
[2021-02-26] MEDS: HYDROXYCHLOROQUINE 200 MG TABLET PO SCH ×2 (08:39→22:00)
[2021-02-26] MEDS: CHOLESTYRAMINE 4 GM PACK PO SCH ×2 (08:40→09:17)
[2021-02-26] MEDS: ASPIRIN CHEW 81 MG TABLET PO SCH (08:40)
[2021-02-26] MEDS: MULTIVITAMIN (CENTRUM) TABLET PO SCH (08:40)
[2021-02-26] MEDS: NINTEDANIB 150 MG PO SCH ×2 (08:46→22:45)
[2021-02-26] MEDS: SODIUM BICARB INJ 100 MEQ in STERILE WATER INJ 1,000 ML IV SCH ×2 (11:12→21:59)
[2021-02-26] MEDS: ACETAMINOPHEN 325 MG TABLET PO PRN (11:16)
[2021-02-26] MEDS: SODIUM ZIRCONIUM CYCLOSILICATE 10 GM PACK PO SCH ×3 (11:17→22:00)
[2021-02-26 13:52] LABS: Anti-Nuclear Antibody Pattern Speckled
[2021-02-26] MEDS: methylPREDNISolone SOD SUC 40 MG/1 ML VIAL IV SCH (16:13)
[2021-02-26 18:18] LABS: Bilirubin,Urine Negative (Negative); Blood, Urine Large mg/dL (Negative); Glucose,Urine (UA) Negative (Negative); Hyaline Casts,Urine 4 /LPF (0-3); Ketones,Urine Negative (Negative); Mucus,Urine Occasional /LPF (Occasional); Nitrite,Urine Negative (Negative); Protein,Urine >=500 MG/DL; RBC,Urine 284 /HPF (0-4); Squamous Epithelial Cell,Urine Occasional /HPF (0-10); Urine Appearance CLOUDY (Clear); Urine Color Yellow (Yellow); Urine Specific Gravity 1.017 (1.001-1.035); Urine Urobilinogen < 2.0 EU/DL (<2.0)
[2021-02-26 18:34] LABS: Protein/Creatinine Ratio,Urine 1.5 RATIO
[2021-02-27] MEDS: methylPREDNISolone SOD SUC 40 MG/1 ML VIAL IV SCH ×2 (02:48→14:29)
[2021-02-27 05:30] LABS: Hematocrit 26.7 VOL% (35.7-47.0); Hemoglobin 7.8 GM/DL (12.0-16.0); Immature Granulocytes % 0.8 %; Immature Granulocytes Absolute 0.07 #; Lymphocytes # 0.7 10*3/uL (1.4-4.0); Lymphocytes % 7.9 % (21.3-54.2); Mean Corpuscular HGB Conc 29.2 GM/DL (32-36); Mean Corpuscular Volume 98.5 FL (87-102); Mean Platelet Volume 10.4 FL (9.6-12.0); Monocytes % 1.7 % (1.7-12.7); NRBC # 0.03 10*3/uL; Neutrophils % 89.6 % (38.7-73.9); Platelet Count 489 T/CUMM (130-400); Red Blood Count 2.71 MC/CUMM (3.8-5.5); Red Cell Distribution Width 20.8 % (9.3-17.3)
[2021-02-27 05:45] LABS: Albumin 1.7 G/DL (3.4-5.0); Bilirubin,Total 1.6 MG/DL (0.20-1.00); Calcium 7.5 MG/DL (8.5-10.1); Osmolality,Calculated 291.5 MOS/KG (273-304); Total Protein 6.1 G/DL (6.4-8.2)
[2021-02-27] MEDS: INSULIN REGULAR 100 UNIT/ML SUBCUT SCH ×4 (09:12→23:01)
[2021-02-27] MEDS: atenoloL 50 MG TABLET PO SCH (09:12)
[2021-02-27] MEDS: predniSONE 5 MG TABLET PO SCH ×2 (09:13→23:02)
[2021-02-27] MEDS: ATORVASTATIN 10 MG TABLET PO SCH (09:13)
[2021-02-27] MEDS: HYDROXYCHLOROQUINE 200 MG TABLET PO SCH ×2 (09:13→23:02)
[2021-02-27] MEDS: SODIUM ZIRCONIUM CYCLOSILICATE 10 GM PACK PO SCH ×3 (09:13→23:34)
[2021-02-27] MEDS: PANTOPRAZOLE 40 MG TABLET PO SCH (09:13)
[2021-02-27] MEDS: ASPIRIN CHEW 81 MG TABLET PO SCH (09:13)
[2021-02-27] MEDS: MULTIVITAMIN (CENTRUM) TABLET PO SCH (09:13)
[2021-02-27] MEDS: MYCOPHENOLATE MOFETIL 250 MG CAPSULE PO SCH ×2 (09:13→23:02)
[2021-02-27] MEDS: CHOLESTYRAMINE 4 GM PACK PO SCH (09:14)
[2021-02-27] MEDS: NINTEDANIB 150 MG PO SCH ×2 (09:17→23:04)
[2021-02-27] MEDS: SODIUM BICARB INJ 100 MEQ in STERILE WATER INJ 1,000 ML IV SCH (11:08)
[2021-02-27] MEDS: cefTRIAXone 1,000 MG in SODIUM CHLORIDE 0.9% 100 ML IV SCH (14:28)
[2021-02-27] MEDS: SODIUM BICARBONATE 650 MG TABLET PO SCH ×2 (14:28→23:01)
[2021-02-27 15:30] LABS: Myeloperoxidase Antibody < 0.2 U
[2021-02-27] MEDS ORDERED: SODIUM ZIRCONIUM CYCLOSILICATE 10 GM PACK PO SCH (23:00)
[2021-02-28] MEDS: methylPREDNISolone SOD SUC 40 MG/1 ML VIAL IV SCH ×2 (02:29→15:50)
[2021-02-28 06:31] LABS: Basophils % 0.1 % (0.0-0.8); Hematocrit 27.8 VOL% (35.7-47.0); Hemoglobin 8.2 GM/DL (12.0-16.0); Immature Granulocytes % 0.6 %; Immature Granulocytes Absolute 0.09 #; Lymphocytes # 1.1 10*3/uL (1.4-4.0); Lymphocytes % 7.6 % (21.3-54.2); Mean Corpuscular HGB Conc 29.5 GM/DL (32-36); Mean Corpuscular Volume 97.5 FL (87-102); Mean Platelet Volume 11.3 FL (9.6-12.0); Monocytes % 2.2 % (1.7-12.7); NRBC # 0.29 10*3/uL; Neutrophils % 89.5 % (38.7-73.9); Platelet Count 536 T/CUMM (130-400); Red Blood Count 2.85 MC/CUMM (3.8-5.5); Red Cell Distribution Width 21.3 % (9.3-17.3); White Blood Count 14.9 T/CUMM (4-12)
[2021-02-28 06:45] LABS: Hypochromia 1+; Platelet Estimate Increased
[2021-02-28 06:51] LABS: Alanine Aminotransferase 15 U/L (13-56); Alkaline Phosphatase 81 U/L (45-117); Aspartate Amino Transferase 28 U/L (0-37); Bilirubin,Total < 0.39 MG/DL (0.20-1.00); Blood Urea Nitrogen 89 MG/DL (7-18); Calcium 7.6 MG/DL (8.5-10.1); Carbon Dioxide 19 MMOL/L (21-32); Estimated Glom Filtration Rate 11 ML/MIN; Glucose 179 MG/DL (74-106); Osmolality,Calculated 294.5 MOS/KG (273-304); Sodium 132 MMOL/L (136-145); Total Protein 6.4 G/DL (6.4-8.2)
[2021-02-28 07:06] LABS: Creatinine Clearance Urine 5.83 ML/MIN (70-115)
[2021-02-28] MEDS ORDERED: SODIUM ZIRCONIUM CYCLOSILICATE 10 GM PACK PO SCH (09:00)
[2021-02-28] MEDS: MYCOPHENOLATE MOFETIL 250 MG CAPSULE PO SCH ×2 (09:24→22:50)
[2021-02-28] MEDS: ASPIRIN CHEW 81 MG TABLET PO SCH (09:24)
[2021-02-28] MEDS: MULTIVITAMIN (CENTRUM) TABLET PO SCH (09:24)
[2021-02-28] MEDS: SODIUM BICARBONATE 650 MG TABLET PO SCH ×2 (09:24→22:50)
[2021-02-28] MEDS: predniSONE 5 MG TABLET PO SCH ×2 (09:24→22:51)
[2021-02-28] MEDS: HYDROXYCHLOROQUINE 200 MG TABLET PO SCH ×2 (09:24→22:50)
[2021-02-28] MEDS: ATORVASTATIN 10 MG TABLET PO SCH (09:24)
[2021-02-28] MEDS: PANTOPRAZOLE 40 MG TABLET PO SCH (09:25)
[2021-02-28] MEDS: CHOLESTYRAMINE 4 GM PACK PO SCH (09:25)
[2021-02-28] MEDS: atenoloL 50 MG TABLET PO SCH (09:30)
[2021-02-28] MEDS: LOPERAMIDE 2 MG CAPSULE PO PRN (09:30)
[2021-02-28] MEDS: INSULIN REGULAR 100 UNIT/ML SUBCUT SCH ×4 (09:30→22:51)
[2021-02-28] MEDS: cefTRIAXone 1,000 MG in SODIUM CHLORIDE 0.9% 100 ML IV SCH (09:38)
[2021-02-28 09:46] LABS: Total Protein 24 Hr Ur Result 1222 MG/24HR (0-149.1); Total Volume,Urine 250 ML (400-2000)
[2021-02-28] MEDS: NINTEDANIB 150 MG PO SCH ×2 (11:18→22:51)
[2021-02-28] MEDS: SODIUM ZIRCONIUM CYCLOSILICATE 10 GM PACK PO SCH (12:27)
[2021-02-28] MEDS: HEPARIN 5,000 UNIT/1 ML VIAL SUBCUT SCH ×2 (13:02→23:59)
[2021-02-28 16:17] LABS: DRVVT Screen Ratio 0.79 ratio (<1.20)
[2021-02-28 20:06] LABS: Phospholipid Ab IgM, S < 9.4 MPL
[2021-03-01] MEDS: methylPREDNISolone SOD SUC 40 MG/1 ML VIAL IV SCH ×2 (03:29→15:16)
[2021-03-01 05:09] LABS: Basophils % 0.1 % (0.0-0.8); Hematocrit 27.4 VOL% (35.7-47.0); Hemoglobin 7.9 GM/DL (12.0-16.0); Immature Granulocytes % 0.9 %; Immature Granulocytes Absolute 0.12 #; Lymphocytes # 0.7 10*3/uL (1.4-4.0); Lymphocytes % 5.2 % (21.3-54.2); Mean Corpuscular HGB Conc 28.8 GM/DL (32-36); Mean Corpuscular Volume 97.2 FL (87-102); Mean Platelet Volume 10.6 FL (9.6-12.0); Monocytes % 4.4 % (1.7-12.7); NRBC # 0.32 10*3/uL; Neutrophils % 89.4 % (38.7-73.9); Platelet Count 535 T/CUMM (130-400); Red Blood Count 2.82 MC/CUMM (3.8-5.5); Red Cell Distribution Width 20.8 % (9.3-17.3); White Blood Count 13.9 T/CUMM (4-12)
[2021-03-01 05:33] LABS: Alanine Aminotransferase 9 U/L (13-56); Albumin 1.8 G/DL (3.4-5.0); Alkaline Phosphatase 68 U/L (45-117); Aspartate Amino Transferase 25 U/L (0-37); Bilirubin,Total < 0.39 MG/DL (0.20-1.00); Blood Urea Nitrogen 98 MG/DL (7-18); Calcium 7.5 MG/DL (8.5-10.1); Carbon Dioxide 21 MMOL/L (21-32); Estimated Glom Filtration Rate 11 ML/MIN; Glucose 179 MG/DL (74-106); Osmolality,Calculated 296.7 MOS/KG (273-304); Potassium 4.5 MMOL/L (3.5-5.1); Sodium 131 MMOL/L (136-145); Total Protein 5.9 G/DL (6.4-8.2)
[2021-03-01 05:39] LABS: Hypochromia Slight; Platelet Estimate Increased
[2021-03-01 07:46] LABS: 24 Hr Protein (Bench) 1222 MG/24HR (0-149.1)
[2021-03-01 09:08] LABS: Albumin (UPE) 920.1 MG/24H; Albumin (UPE) Rel % 75.3 %; Alpha 1 (UPE) 57.4 MG/24H; Alpha 1 (UPE) Rel % 4.7 %; Alpha 2 (UPE) 37.9 MG/24H; Alpha 2 (UPE) Rel % 3.1 %; Beta (UPE) Rel % 5.4 %; Gamma (UPE) 140.5 MG/24H; Gamma (UPE) Rel % 11.5 %
[2021-03-01] MEDS ORDERED: SALIVA SUBSTITUTE SPRAY 60 ML CAN SWISH/SWAL PRN (09:11)
[2021-03-01] MEDS: SODIUM ZIRCONIUM CYCLOSILICATE 10 GM PACK PO SCH (09:45)
[2021-03-01] MEDS: NINTEDANIB 150 MG PO SCH ×2 (09:45→20:22)
[2021-03-01] MEDS: CHOLESTYRAMINE 4 GM PACK PO SCH (09:45)
[2021-03-01] MEDS: MULTIVITAMIN (CENTRUM) TABLET PO SCH (09:46)
[2021-03-01] MEDS: MYCOPHENOLATE MOFETIL 250 MG CAPSULE PO SCH ×2 (09:46→20:21)
[2021-03-01] MEDS: ASPIRIN CHEW 81 MG TABLET PO SCH (09:46)
[2021-03-01] MEDS: predniSONE 5 MG TABLET PO SCH ×2 (09:46→20:22)
[2021-03-01] MEDS: ATORVASTATIN 10 MG TABLET PO SCH (09:46)
[2021-03-01] MEDS: SODIUM BICARBONATE 650 MG TABLET PO SCH ×2 (09:46→20:22)
[2021-03-01] MEDS: PANTOPRAZOLE 40 MG TABLET PO SCH (09:46)
[2021-03-01] MEDS: atenoloL 50 MG TABLET PO SCH (09:47)
[2021-03-01] MEDS: INSULIN REGULAR 100 UNIT/ML SUBCUT SCH ×4 (09:52→20:28)
[2021-03-01] MEDS: HYDROXYCHLOROQUINE 200 MG TABLET PO SCH ×2 (09:54→20:22)
[2021-03-01] MEDS: cefTRIAXone 1,000 MG in SODIUM CHLORIDE 0.9% 100 ML IV SCH (09:55)
[2021-03-01] MEDS ORDERED: DEXTROSE 10% 250 ML BAG IV PRN (10:30)
[2021-03-01] MEDS: HEPARIN 5,000 UNIT/1 ML VIAL SUBCUT SCH ×2 (11:55→23:53)
[2021-03-01] MEDS: ACETAMINOPHEN 325 MG TABLET PO PRN (20:27)
[2021-03-02] MEDS: LOPERAMIDE 2 MG CAPSULE PO PRN ×2 (01:28→18:17)
[2021-03-02] MEDS: methylPREDNISolone SOD SUC 40 MG/1 ML VIAL IV SCH ×2 (03:27→15:20)
[2021-03-02 07:03] LABS: Basophils % 0.1 % (0.0-0.8); Hematocrit 29.7 VOL% (35.7-47.0); Hemoglobin 8.9 GM/DL (12.0-16.0); Immature Granulocytes Absolute 0.18 #; Lymphocytes # 0.8 10*3/uL (1.4-4.0); Lymphocytes % 4.3 % (21.3-54.2); Mean Corpuscular Volume 94.6 FL (87-102); Mean Platelet Volume 11.4 FL (9.6-12.0); Monocytes % 3.2 % (1.7-12.7); NRBC # 0.47 10*3/uL; Neutrophils % 91.4 % (38.7-73.9); Platelet Count 396 T/CUMM (130-400); Red Blood Count 3.14 MC/CUMM (3.8-5.5); Red Cell Distribution Width 21.1 % (9.3-17.3); White Blood Count 18.1 T/CUMM (4-12)
[2021-03-02 07:16] LABS: Alanine Aminotransferase 14 U/L (13-56); Albumin 1.8 G/DL (3.4-5.0); Alkaline Phosphatase 72 U/L (45-117); Aspartate Amino Transferase 40 U/L (0-37); Bilirubin,Total < 0.39 MG/DL (0.20-1.00); Blood Urea Nitrogen 103 MG/DL (7-18); Calcium 7.3 MG/DL (8.5-10.1); Carbon Dioxide 19 MMOL/L (21-32); Estimated Glom Filtration Rate 11 ML/MIN; Glucose 135 MG/DL (74-106); Osmolality,Calculated 301.2 MOS/KG (273-304); Potassium 4.8 MMOL/L (3.5-5.1); Sodium 134 MMOL/L (136-145); Total Protein 5.8 G/DL (6.4-8.2)
[2021-03-02 08:01] LABS: Hepatitis B Core IgM Quant 0.23 Index; Hepatitis B Surface Ag Quant < 0.10 Index; Hepatitis B Surface Ag Result Non-Reactive (NonReactive); Hepatitis C Virus Ab Quant < 0.02 Index; Hepatitis C Virus Ab Result Non-Reactive (NonReactive)
[2021-03-02 08:07] LABS: Anisocytosis 1+; Band Neutrophils 12 % (0-10); Lymphocytes 7 % (20-55); Macrocytosis 1+; Nucleated Red Blood Cells 4 (0-5); Platelet Estimate Normal; Segmented Neutrophils 80 % (50-85); Total Cells Counted 100
[2021-03-02] MEDS: SODIUM ZIRCONIUM CYCLOSILICATE 10 GM PACK PO SCH (09:08)
[2021-03-02] MEDS: MYCOPHENOLATE MOFETIL 250 MG CAPSULE PO SCH ×2 (09:09→20:50)
[2021-03-02] MEDS: HYDROXYCHLOROQUINE 200 MG TABLET PO SCH ×2 (09:09→20:50)
[2021-03-02] MEDS: atenoloL 50 MG TABLET PO SCH (09:09)
[2021-03-02] MEDS: CHOLESTYRAMINE 4 GM PACK PO SCH (09:09)
[2021-03-02] MEDS: predniSONE 5 MG TABLET PO SCH ×2 (09:10→20:50)
[2021-03-02] MEDS: ATORVASTATIN 10 MG TABLET PO SCH (09:10)
[2021-03-02] MEDS: PANTOPRAZOLE 40 MG TABLET PO SCH (09:10)
[2021-03-02] MEDS: SODIUM BICARBONATE 650 MG TABLET PO SCH ×2 (09:10→20:50)
[2021-03-02] MEDS: MULTIVITAMIN (CENTRUM) TABLET PO SCH (09:10)
[2021-03-02] MEDS: INSULIN REGULAR 100 UNIT/ML SUBCUT SCH ×4 (09:11→20:49)
[2021-03-02] MEDS: ASPIRIN CHEW 81 MG TABLET PO SCH (09:15)
[2021-03-02] MEDS: NINTEDANIB 150 MG PO SCH ×2 (09:45→20:50)
[2021-03-02] MEDS: cefTRIAXone 1,000 MG in SODIUM CHLORIDE 0.9% 100 ML IV SCH (10:36)
[2021-03-02] MEDS ORDERED: POLYVINYL ALCOHOL 1.4% OPH SOLN 15 ML BOTTLE BOTH EYES PRN (11:02)
[2021-03-02] MEDS: HEPARIN 5,000 UNIT/1 ML VIAL SUBCUT SCH ×2 (11:55→23:00)
[2021-03-03] MEDS: methylPREDNISolone SOD SUC 40 MG/1 ML VIAL IV SCH ×2 (03:16→15:45)
[2021-03-03 07:31] LABS: Basophils % 0.1 % (0.0-0.8); Hematocrit 30.8 VOL% (35.7-47.0); Immature Granulocytes % 0.8 %; Immature Granulocytes Absolute 0.16 #; Lymphocytes # 0.6 10*3/uL (1.4-4.0); Lymphocytes % 3.1 % (21.3-54.2); Mean Corpuscular HGB Conc 29.2 GM/DL (32-36); Mean Corpuscular Volume 96.3 FL (87-102); Mean Platelet Volume 10.5 FL (9.6-12.0); Monocytes % 2.7 % (1.7-12.7); NRBC # 0.45 10*3/uL; Neutrophils % 93.3 % (38.7-73.9); Platelet Count 583 T/CUMM (130-400); Red Cell Distribution Width 19.9 % (9.3-17.3); White Blood Count 19.1 T/CUMM (4-12)
[2021-03-03 08:08] LABS: Calcium 7.3 MG/DL (8.5-10.1); Osmolality,Calculated 304.5 MOS/KG (273-304); Potassium 4.5 MMOL/L (3.5-5.1)
[2021-03-03 08:46] LABS: Band Neutrophils 16 % (0-10); Lymphocytes 7 % (20-55); Metamyelocytes 1 %; Platelet Estimate Increased; Segmented Neutrophils 74 % (50-85); Total Cells Counted 100
[2021-03-03 08:47] LABS: Anisocytosis 1+; Macrocytosis 1+; Target Cells Few; Tear Drop Cells Few
[2021-03-03] MEDS: INSULIN REGULAR 100 UNIT/ML SUBCUT SCH ×4 (09:18→20:22)
[2021-03-03] MEDS: atenoloL 50 MG TABLET PO SCH (09:18)
[2021-03-03] MEDS: predniSONE 5 MG TABLET PO SCH ×2 (09:18→20:22)
[2021-03-03] MEDS: MYCOPHENOLATE MOFETIL 250 MG CAPSULE PO SCH ×2 (09:18→20:22)
[2021-03-03] MEDS: MULTIVITAMIN (CENTRUM) TABLET PO SCH (09:19)
[2021-03-03] MEDS: SODIUM BICARBONATE 650 MG TABLET PO SCH ×2 (09:19→20:22)
[2021-03-03] MEDS: ATORVASTATIN 10 MG TABLET PO SCH (09:19)
[2021-03-03] MEDS: HYDROXYCHLOROQUINE 200 MG TABLET PO SCH ×2 (09:19→20:22)
[2021-03-03] MEDS: ASPIRIN CHEW 81 MG TABLET PO SCH (09:19)
[2021-03-03] MEDS: PANTOPRAZOLE 40 MG TABLET PO SCH (09:20)
[2021-03-03] MEDS: SODIUM ZIRCONIUM CYCLOSILICATE 10 GM PACK PO SCH (09:22)
[2021-03-03] MEDS: cefTRIAXone 1,000 MG in SODIUM CHLORIDE 0.9% 100 ML IV SCH (09:22)
[2021-03-03] MEDS: NINTEDANIB 150 MG PO SCH ×2 (09:30→20:28)
[2021-03-03] MEDS: HEPARIN 5,000 UNIT/1 ML VIAL SUBCUT SCH ×2 (12:17→23:19)
[2021-03-04] MEDS: methylPREDNISolone SOD SUC 40 MG/1 ML VIAL IV SCH ×2 (03:29→18:18)
[2021-03-04 06:05] LABS: Alanine Aminotransferase 14 U/L (13-56); Alkaline Phosphatase 66 U/L (45-117); Aspartate Amino Transferase 29 U/L (0-37); Bilirubin,Total < 0.39 MG/DL (0.20-1.00); Blood Urea Nitrogen 127 MG/DL (7-18); Calcium 7.5 MG/DL (8.5-10.1); Carbon Dioxide 22 MMOL/L (21-32); Estimated Glom Filtration Rate 11 ML/MIN; Glucose 150 MG/DL (74-106); Osmolality,Calculated 305.7 MOS/KG (273-304); Potassium 4.7 MMOL/L (3.5-5.1); Sodium 131 MMOL/L (136-145); Total Protein 5.7 G/DL (6.4-8.2)
[2021-03-04 06:19] LABS: Basophils % 0.1 % (0.0-0.8); Hematocrit 31.4 VOL% (35.7-47.0); Hemoglobin 9.2 GM/DL (12.0-16.0); Immature Granulocytes % 1.1 %; Immature Granulocytes Absolute 0.26 #; Lymphocytes % 4.1 % (21.3-54.2); Mean Corpuscular HGB Conc 29.3 GM/DL (32-36); Mean Corpuscular Volume 98.7 FL (87-102); Mean Platelet Volume 10.4 FL (9.6-12.0); Monocytes % 3.5 % (1.7-12.7); NRBC # 0.52 10*3/uL; Neutrophils % 91.2 % (38.7-73.9); Platelet Count 578 T/CUMM (130-400); Red Blood Count 3.18 MC/CUMM (3.8-5.5); Red Cell Distribution Width 19.9 % (9.3-17.3); White Blood Count 23.9 T/CUMM (4-12)
[2021-03-04 06:23] LABS: Eosinophils 1 % (0-10); Hypochromia 1+; Lymphocytes 2 % (20-55); Microcytosis 1+; Nucleated Red Blood Cells 1 (0-5); Platelet Estimate Adequate; Segmented Neutrophils 96 % (50-85); Total Cells Counted 100
[2021-03-04] MEDS: cefTRIAXone 1,000 MG in SODIUM CHLORIDE 0.9% 100 ML IV SCH (09:46)
[2021-03-04] MEDS: INSULIN REGULAR 100 UNIT/ML SUBCUT SCH ×4 (09:48→21:24)
[2021-03-04] MEDS: ASPIRIN CHEW 81 MG TABLET PO SCH (09:48)
[2021-03-04] MEDS: SODIUM BICARBONATE 650 MG TABLET PO SCH ×2 (09:48→21:23)
[2021-03-04] MEDS: SODIUM ZIRCONIUM CYCLOSILICATE 10 GM PACK PO SCH (09:48)
[2021-03-04] MEDS: MYCOPHENOLATE MOFETIL 250 MG CAPSULE PO SCH ×2 (09:49→21:23)
[2021-03-04] MEDS: MULTIVITAMIN (CENTRUM) TABLET PO SCH (09:49)
[2021-03-04] MEDS: atenoloL 50 MG TABLET PO SCH (09:49)
[2021-03-04] MEDS: predniSONE 5 MG TABLET PO SCH ×2 (09:49→21:23)
[2021-03-04] MEDS: ATORVASTATIN 10 MG TABLET PO SCH (09:49)
[2021-03-04] MEDS: NINTEDANIB 150 MG PO SCH ×2 (09:50→21:23)
[2021-03-04] MEDS: HYDROXYCHLOROQUINE 200 MG TABLET PO SCH ×2 (09:50→21:23)
[2021-03-04] MEDS: PANTOPRAZOLE 40 MG TABLET PO SCH (13:10)
[2021-03-04] MEDS: HEPARIN 5,000 UNIT/1 ML VIAL SUBCUT SCH ×2 (13:11→23:12)
[2021-03-04] MEDS: LACTATED RINGERS 1,000 ML IV SCH (18:18)
[2021-03-05] MEDS: methylPREDNISolone SOD SUC 40 MG/1 ML VIAL IV SCH ×2 (03:28→21:42)
[2021-03-05 07:18] LABS: Basophils % 0.1 % (0.0-0.8); Hematocrit 30.6 VOL% (35.7-47.0); Hemoglobin 9.1 GM/DL (12.0-16.0); Immature Granulocytes Absolute 0.28 #; Lymphocytes # 0.6 10*3/uL (1.4-4.0); Lymphocytes % 2.2 % (21.3-54.2); Mean Corpuscular HGB Conc 29.7 GM/DL (32-36); Mean Corpuscular Volume 96.5 FL (87-102); Mean Platelet Volume 10.6 FL (9.6-12.0); Monocytes % 1.9 % (1.7-12.7); NRBC # 0.37 10*3/uL; Neutrophils % 94.8 % (38.7-73.9); Platelet Count 578 T/CUMM (130-400); Red Blood Count 3.17 MC/CUMM (3.8-5.5); Red Cell Distribution Width 19.8 % (9.3-17.3); White Blood Count 28.6 T/CUMM (4-12)
[2021-03-05 07:29] LABS: Calcium 7.5 MG/DL (8.5-10.1); Osmolality,Calculated 312.5 MOS/KG (273-304); Potassium 5.1 MMOL/L (3.5-5.1)
[2021-03-05 07:37] LABS: Hypochromia 1+; Lymphocytes 1 % (20-55); Microcytosis 1+; Nucleated Red Blood Cells 3 (0-5); Platelet Estimate Adequate; Segmented Neutrophils 97 % (50-85); Total Cells Counted 100
[2021-03-05] MEDS ORDERED: ADALIMUMAB 40 MG/0.4 ML SUBCUT SCH (09:00)
[2021-03-05] MEDS: cefTRIAXone 1,000 MG in SODIUM CHLORIDE 0.9% 100 ML IV SCH (09:58)
[2021-03-05] MEDS: MYCOPHENOLATE MOFETIL 250 MG CAPSULE PO SCH ×2 (09:59→21:40)
[2021-03-05] MEDS: MULTIVITAMIN (CENTRUM) TABLET PO SCH (09:59)
[2021-03-05] MEDS: ATORVASTATIN 10 MG TABLET PO SCH (09:59)
[2021-03-05] MEDS: PANTOPRAZOLE 40 MG TABLET PO SCH (10:00)
[2021-03-05] MEDS: SODIUM BICARBONATE 650 MG TABLET PO SCH ×2 (10:00→21:40)
[2021-03-05] MEDS: HYDROXYCHLOROQUINE 200 MG TABLET PO SCH ×2 (10:00→21:40)
[2021-03-05] MEDS: atenoloL 50 MG TABLET PO SCH (10:00)
[2021-03-05] MEDS: ASPIRIN CHEW 81 MG TABLET PO SCH (10:00)
[2021-03-05] MEDS: predniSONE 5 MG TABLET PO SCH (10:00)
[2021-03-05] MEDS: SODIUM ZIRCONIUM CYCLOSILICATE 10 GM PACK PO SCH (10:01)
[2021-03-05] MEDS: INSULIN REGULAR 100 UNIT/ML SUBCUT SCH ×4 (10:06→21:42)
[2021-03-05] MEDS: NINTEDANIB 150 MG PO SCH ×2 (10:07→21:40)
[2021-03-05] MEDS: LACTATED RINGERS 1,000 ML IV SCH (16:02)
[2021-03-05] MEDS: HEPARIN 5,000 UNIT/1 ML VIAL SUBCUT SCH ×2 (16:04→23:00)
[2021-03-06 05:18] LABS: Basophils % 0.1 % (0.0-0.8); Hematocrit 28.5 VOL% (35.7-47.0); Hemoglobin 8.5 GM/DL (12.0-16.0); Immature Granulocytes Absolute 0.31 #; Lymphocytes # 0.6 10*3/uL (1.4-4.0); Mean Corpuscular HGB Conc 29.8 GM/DL (32-36); Mean Corpuscular Volume 96.3 FL (87-102); Monocytes % 2.4 % (1.7-12.7); NRBC # 0.23 10*3/uL; Neutrophils % 94.5 % (38.7-73.9); Platelet Count 484 T/CUMM (130-400); Red Blood Count 2.96 MC/CUMM (3.8-5.5); Red Cell Distribution Width 19.6 % (9.3-17.3); White Blood Count 29.9 T/CUMM (4-12)
[2021-03-06 05:40] LABS: Hypochromia Slight; Lymphocytes 1 % (20-55); Platelet Estimate Adequate; Segmented Neutrophils 98 % (50-85); Total Cells Counted 100
[2021-03-06 05:45] LABS: Calcium 7.1 MG/DL (8.5-10.1); Osmolality,Calculated 313.4 MOS/KG (273-304); Potassium 5.3 MMOL/L (3.5-5.1)
[2021-03-06] MEDS: LACTATED RINGERS 1,000 ML IV SCH (10:01)
[2021-03-06] MEDS: INSULIN REGULAR 100 UNIT/ML SUBCUT SCH ×4 (10:05→20:43)
[2021-03-06] MEDS: MYCOPHENOLATE MOFETIL 250 MG CAPSULE PO SCH ×2 (10:06→20:44)
[2021-03-06] MEDS: MULTIVITAMIN (CENTRUM) TABLET PO SCH (10:06)
[2021-03-06] MEDS: ATORVASTATIN 10 MG TABLET PO SCH (10:06)
[2021-03-06] MEDS: ASPIRIN CHEW 81 MG TABLET PO SCH (10:06)
[2021-03-06] MEDS: SODIUM ZIRCONIUM CYCLOSILICATE 10 GM PACK PO SCH (10:08)
[2021-03-06] MEDS: HYDROXYCHLOROQUINE 200 MG TABLET PO SCH ×2 (10:08→20:44)
[2021-03-06] MEDS: NINTEDANIB 150 MG PO SCH ×2 (10:08→20:44)
[2021-03-06] MEDS: SODIUM BICARBONATE 650 MG TABLET PO SCH ×2 (10:09→20:44)
[2021-03-06] MEDS: PANTOPRAZOLE 40 MG TABLET PO SCH (10:09)
[2021-03-06] MEDS: methylPREDNISolone SOD SUC 40 MG/1 ML VIAL IV SCH ×2 (10:09→20:42)
[2021-03-06] MEDS: cefTRIAXone 1,000 MG in SODIUM CHLORIDE 0.9% 100 ML IV SCH (10:09)
[2021-03-06] MEDS: atenoloL 50 MG TABLET PO SCH (10:10)
[2021-03-06] MEDS ORDERED: ERGOCALCIFEROL 50,000 UNIT CAPSULE PO SCH (14:30)
[2021-03-06] MEDS: HEPARIN 5,000 UNIT/1 ML VIAL SUBCUT SCH ×2 (15:04→23:01)
[2021-03-06 17:56] LABS: CDT Result Negative (Negative); CDT Specimen Source STOOL
[2021-03-06 17:58] LABS: Bacteria,Urine Moderate /HPF (Few); Bilirubin,Urine Negative (Negative); Blood, Urine Large mg/dL (Negative); Glucose,Urine (UA) Negative (Negative); Ketones,Urine Negative (Negative); Mucus,Urine Few /LPF (Occasional); Nitrite,Urine Negative (Negative); Protein,Urine >=500 MG/DL; RBC,Urine 32 /HPF (0-4); Squamous Epithelial Cell,Urine Few /HPF (0-10); Urine Appearance CLOUDY (Clear); Urine Color Amber (Yellow); Urine Specific Gravity 1.016 (1.001-1.035); Urine Urobilinogen < 2.0 EU/DL (<2.0)
[2021-03-07] MEDS: LACTATED RINGERS 1,000 ML IV SCH (04:46)
[2021-03-07 06:36] LABS: Calcium 7.4 MG/DL (8.5-10.1); Osmolality,Calculated 315.5 MOS/KG (273-304); Potassium 5.6 MMOL/L (3.5-5.1)
[2021-03-07 08:42] LABS: Basophils % 0.1 % (0.0-0.8); Hematocrit 29.1 VOL% (35.7-47.0); Hemoglobin 8.5 GM/DL (12.0-16.0); Immature Granulocytes % 1.5 %; Immature Granulocytes Absolute 0.46 #; Lymphocytes % 3.5 % (21.3-54.2); Mean Corpuscular HGB Conc 29.2 GM/DL (32-36); Mean Corpuscular Volume 97.7 FL (87-102); Mean Platelet Volume 11.1 FL (9.6-12.0); Monocytes % 3.5 % (1.7-12.7); NRBC # 0.16 10*3/uL; Neutrophils % 91.4 % (38.7-73.9); Platelet Count 452 T/CUMM (130-400); Red Blood Count 2.98 MC/CUMM (3.8-5.5); Red Cell Distribution Width 19.7 % (9.3-17.3); White Blood Count 29.8 T/CUMM (4-12)
[2021-03-07] MEDS: SODIUM ZIRCONIUM CYCLOSILICATE 10 GM PACK PO SCH (08:44)
[2021-03-07] MEDS: INSULIN REGULAR 100 UNIT/ML SUBCUT SCH ×4 (08:45→21:02)
[2021-03-07] MEDS: methylPREDNISolone SOD SUC 40 MG/1 ML VIAL IV SCH (08:45)
[2021-03-07] MEDS: SODIUM BICARBONATE 650 MG TABLET PO SCH ×2 (08:46→21:03)
[2021-03-07] MEDS: ATORVASTATIN 10 MG TABLET PO SCH (08:46)
[2021-03-07] MEDS: MULTIVITAMIN (CENTRUM) TABLET PO SCH (08:46)
[2021-03-07] MEDS: atenoloL 50 MG TABLET PO SCH (08:46)
[2021-03-07] MEDS: HYDROXYCHLOROQUINE 200 MG TABLET PO SCH ×2 (08:46→21:03)
[2021-03-07] MEDS: ASPIRIN CHEW 81 MG TABLET PO SCH (08:46)
[2021-03-07] MEDS: MYCOPHENOLATE MOFETIL 250 MG CAPSULE PO SCH ×2 (08:46→21:03)
[2021-03-07] MEDS: PANTOPRAZOLE 40 MG TABLET PO SCH (08:46)
[2021-03-07] MEDS: NINTEDANIB 150 MG PO SCH ×2 (08:56→21:02)
[2021-03-07 09:04] LABS: Lymphocytes 4 % (20-55); Platelet Estimate Adequate; Segmented Neutrophils 95 % (50-85); Total Cells Counted 100
[2021-03-07 09:05] LABS: Hypochromia 1+; Microcytosis 1+
[2021-03-07] MEDS: HEPARIN 5,000 UNIT/1 ML VIAL SUBCUT SCH ×2 (12:14→21:05)
[2021-03-07] MEDS ORDERED: cefTRIAXone 1,000 MG in SODIUM CHLORIDE 0.9% 100 ML IV SCH (21:00)
[2021-03-07] MEDS: predniSONE 10 MG TABLET PO SCH (21:03)
[2021-03-08] MEDS: LACTATED RINGERS 1,000 ML IV SCH (01:50)
[2021-03-08 05:55] LABS: Basophils % 0.1 % (0.0-0.8); Hematocrit 30.1 VOL% (35.7-47.0); Hemoglobin 8.8 GM/DL (12.0-16.0); Immature Granulocytes % 1.4 %; Immature Granulocytes Absolute 0.42 #; Lymphocytes # 0.7 10*3/uL (1.4-4.0); Lymphocytes % 2.3 % (21.3-54.2); Mean Corpuscular HGB Conc 29.2 GM/DL (32-36); Mean Corpuscular Volume 96.2 FL (87-102); Mean Platelet Volume 11.4 FL (9.6-12.0); Monocytes % 3.2 % (1.7-12.7); NRBC # 0.17 10*3/uL; Platelet Count 499 T/CUMM (130-400); Red Blood Count 3.13 MC/CUMM (3.8-5.5); Red Cell Distribution Width 19.6 % (9.3-17.3); White Blood Count 29.9 T/CUMM (4-12)
[2021-03-08 06:13] LABS: Calcium 6.7 MG/DL (8.5-10.1); Osmolality,Calculated 319.4 MOS/KG (273-304); Potassium 5.6 MMOL/L (3.5-5.1)
[2021-03-08 06:35] LABS: Band Neutrophils 1 % (0-10); Hypochromia 1+; Lymphocytes 1 % (20-55); Microcytosis 1+; Nucleated Red Blood Cells 2 (0-5); Platelet Estimate Adequate; Segmented Neutrophils 97 % (50-85); Total Cells Counted 100
[2021-03-08] MEDS: SODIUM ZIRCONIUM CYCLOSILICATE 10 GM PACK PO SCH (10:30)
[2021-03-08] MEDS: INSULIN REGULAR 100 UNIT/ML SUBCUT SCH ×2 (10:30→12:25)
[2021-03-08] MEDS: predniSONE 10 MG TABLET PO SCH (10:31)
[2021-03-08] MEDS: ASPIRIN CHEW 81 MG TABLET PO SCH (10:31)
[2021-03-08] MEDS: ATORVASTATIN 10 MG TABLET PO SCH (10:31)
[2021-03-08] MEDS: PANTOPRAZOLE 40 MG TABLET PO SCH (10:31)
[2021-03-08] MEDS: MULTIVITAMIN (CENTRUM) TABLET PO SCH (10:31)
[2021-03-08] MEDS: SODIUM BICARBONATE 650 MG TABLET PO SCH (10:31)
[2021-03-08] MEDS: MYCOPHENOLATE MOFETIL 250 MG CAPSULE PO SCH (10:32)
[2021-03-08] MEDS: HYDROXYCHLOROQUINE 200 MG TABLET PO SCH (10:32)
[2021-03-08] MEDS: atenoloL 50 MG TABLET PO SCH (10:32)
[2021-03-08] MEDS: NINTEDANIB 150 MG PO SCH (10:35)
[2021-03-08] MEDS: HEPARIN 5,000 UNIT/1 ML VIAL SUBCUT SCH (11:58)
[2021-03-08 12:25] VITALS: BP 137/94
== END 2021-03-08 13:00 | disposition home health service (06) | DRG 545 ==
LOC: EDUNIT# → EDBD → N.ED 18:15 → SUATTDRO 20:50 → N.EDINP 02-20 00:46 → N.5E 02-20 16:57
PROVIDERS: ADMIT Internal Medicine; ATTEND Internal Medicine